=== PATIENT | male | born 1985 | race Caucasian/White ===

== ENCOUNTER 2016-12-14 12:45 | Emergency (ER) | payer SELFPAY ==
[~2016-12-14] VITALS: Ht 175.3 cm; Wt 68.0 kg
--- OUTSIDE RECORDS SUMMARY | 2016-12-14 12:51 | XMS REPORT | Continuity of Care Document ---
Author Author [facility] Address Unknown Phone Unavailable Allergies Medications Problems Procedures Code [place] [id number] Claudine Mcfadden Results Encounters ACCT No. Visit Date/Time Discharge Status Pt. Type Provider Facility Loc./Unit Complaint [id number] 10/18/2015 14:07:00 ACT Unknown
[2016-12-14 13:30] LABS: BASOPHILS % (AUTO) 0 % (0-10); EOSINOPHILS % (AUTO) 1 % (0-10); LYMPHOCYTES # (AUTO) 1.3 X 10^3 (1.0-4.0); LYMPHOCYTES % (AUTO) 24 % (12-44); MEAN CORPUSCULAR HEMOGLOBIN 33 PG (25-34); MEAN CORPUSCULAR HGB CONC 36 G/DL (32-36); MEAN CORPUSCULAR VOLUME 94 FL (80-99); MEAN PLATELET VOLUME 9.6 FL (7.4-10.4); MONOCYTES # (AUTO) 0.4 X 10^3 (0.0-1.0); MONOCYTES % (AUTO) 7 % (0-12); NEUTROPHILS # (AUTO) 3.7 X 10^3 (1.8-7.8); NEUTROPHILS % (AUTO) 68 % (42-75); PLATELET COUNT 253 10^3/uL (130-400); RED BLOOD COUNT 4.55 10^6/uL (4.35-5.85); RED CELL DISTRIBUTION WIDTH 11.9 % (10.0-14.5); WHITE BLOOD COUNT 5.4 10^3/uL (4.3-11.0)
[2016-12-14] MEDS ORDERED: ORPHENADRINE 60 MG/2 ML (NORFLEX) AMP IV ONE (13:30)
[2016-12-14] MEDS ORDERED: KETOROLAC 30 MG/ML VIAL IVP ONE (13:30)
[2016-12-14] MEDS ORDERED: ONDANSETRON 4 MG/2 ML (SDV) Z0FRAN IVP ONE (13:30)
--- NOTE | 2016-12-14 13:58 | Diagnostic Imaging Report ---
INDICATION: Right flank and groin pain. PA chest, supine and upright abdominal images were obtained. Lungs are clear. There is no intraperitoneal free air. Bowel gas pattern is normal. There are no pathologic masses or calcifications. IMPRESSION: Negative abdomen series. Dictated by: Dictated on workstation # [id number]
--- NOTE | 2016-12-14 14:01 | Diagnostic Imaging Report ---
PROCEDURE: CT urinary tract, rule out kidney stone. TECHNIQUE: Multiple contiguous axial images were obtained through the abdomen and pelvis without the use of intravenous contrast. INDICATION: Right flank pain. Nausea and vomiting. FINDINGS: The lung bases appear clear. The liver, the gallbladder, the spleen, and the adrenal glands appear unremarkable for an unenhanced exam. There is a ureteric stone on the right side measuring 4 mm at L5 level with upstream mild hydroureteronephrosis. No ureteric stone is seen on the left side. There are 2 mm nonobstructive stones in the lower pole of the left kidney with no hydronephrosis. The prostate is not enlarged at 4.2 cm in transverse dimension. The urinary bladder appears unremarkable. The colon demonstrates moderate amounts of fecal material with no abnormal dilatation or evidence of obstruction. The abdominal aorta is normal in caliber. No para-aortic significantly enlarged lymph node. The osseous structures appear grossly unremarkable. IMPRESSION: 1. Proximal right ureteric 4 mm stone with associated upstream mild hydroureteronephrosis. 2. Nonobstructive 2 mm left kidney stones. Dictated by: Dictated on workstation # [id number]
[2016-12-14 14:08] LABS: ALANINE AMINOTRANSFERASE 22 U/L (0-55); ALBUMIN 4.4 G/DL (3.2-4.5); AMYLASE 45 U/L (25-125); ANION GAP 12 MMOL/L (5-14); ASPARTATE AMINO TRANSFERASE 22 U/L (5-34); BILIRUBIN,TOTAL 0.8 MG/DL (0.1-1.0); BLOOD UREA NITROGEN 14 MG/DL (7-18); BUN/CREATININE RATIO 13; CALCIUM 9.3 MG/DL (8.5-10.1); CARBON DIOXIDE 23 MMOL/L (21-32); CHLORIDE 105 MMOL/L (98-107); CREATININE SERUM 1.07 MG/DL (0.60-1.30); GFR ESTIMATED > 60; GLUCOSE 132 MG/DL (70-105); LIPASE 32 U/L (8-78); POTASSIUM 4.1 MMOL/L (3.6-5.0); SODIUM 140 MMOL/L (135-145); TOTAL PROTEIN 6.9 G/DL (6.4-8.2)
[2016-12-14 14:24] LABS: KETONES,URINE 2+ (NEGATIVE); LEUKOCYTE ESTERASE ,URINE 2+ (NEGATIVE); NITRITE,URINE POSITIVE (NEGATIVE); PH,URINE 5 (5-9); PROTEIN,URINE 3+ (NEGATIVE); UROBILINOGEN,URINE 1 MG/DL (NORMAL)
[2016-12-14] MEDS ORDERED: ONDA4TAB8 PO (14:29)
[2016-12-14] MEDS ORDERED: HYDR-87 PO (14:29)
[2016-12-14] MEDS ORDERED: TAMS0.4C98 PO (14:29)
[2016-12-14] MEDS ORDERED: CIPR-225 PO (14:29)
[2016-12-14] MEDS ORDERED: ALFUZOSIN HCL 10 MG TAB (UROXATRAL) PO SCH (14:30)
--- NOTE | 2016-12-14 14:30 | ED GU-Male ---
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, BUT CAME HERE INSTEAD DUE TO SEVERE PAIN NO Allergies and Home Medications Allergies Coded Allergies: No Known Drug Allergies (Unverified , 12/14/16) Home Medications Ciprofloxacin HCl 500 Mg Tablet #20 500 MG PO BID Prescribed by: YELENA XAVIER on 12/14/16 1429 Hydrocodone/Ibuprofen 1 Each Tablet #20 1-2 EACH PO Q4H Prescribed by: YELENA XAVIER on 12/14/16 142 Ondansetron 4 Mg Tab.rapdis #10 4 MG PO Q4H Prescribed by: YELENA XAVIER on 12/14/16 142 Tamsulosin HCl 0.4 Mg Cap #10 0.4 MG PO DAILY Prescribed by: YELENA XAVIER on 12/14/16 142 Constitutional: no symptoms reported Respiratory: no symptoms reported Cardiovascular: no symptoms reported Gastrointestinal: see HPI abdominal pain nausea vomiting Genitourinary: see HPI flank pain other (RIGHT TESTICULAR PAIN ) Musculoskeletal: see HPI back pain Skin: no symptoms reported Psychiatric/Neurological: Anxiety Endocrine: No Symptoms Reported Hematologic/Lymphatic: No Symptoms Reported Past Xuoosqb-Qenmkd-Qgheao Hx Patient Social History Alcohol Use: Past History (HISTORY OF ABUSE, NONE RECENTLY) Recreational Drug Use: Yes (METH, THC. DENIES IV USE) Smoking Status: Current Everyday Smoker (1 09/28 PPD) Recent Foreign Travel: No Contact w/Someone Who Travel: No Recent Infectious Disease Expo: No Recent Hopitalizations: No Surgeries HX Surgeries: Yes Surgeries: Appendectomy Respiratory Hx Respiratory Disorders: No Cardiovascular Hx Cardiac Disorders: No Neurological Hx Neurological Disorders: No Reproductive System Hx Reproductive Disorders: No Genitourinary Hx Genitourinary Disorders: No Gastrointestinal Hx Gastrointestinal Disorders: No Musculoskeletal Hx Musculoskeletal Disorders: No Endocrine Hx Endocrine Disorders: No HEENT HX ENT Disorders: No Cancer Hx Cancer: No Psychosocial Hx Psychiatric Problems: No Integumentary HX Skin/Integumentary Disorder: No Blood Transfusions Hx Blood Disorders: No Physical Exam Vital Signs Vital Sign - Last 12Hours 12/14/16 12:58 Temp 98.6 Pulse 62 Resp 18 B/P 104/61 Pulse Ox 96 O2 Delivery Room Air Capillary Refill : Less Than 3 Seconds General Appearance: WD/WN other (EXTREMELY DRAMATIC, WAILING/MOANING LOUDLY. HOLDING LEFT FLANK. THRASHING ALL OVER. 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 no motor/sensory deficits alert oriented x 3 Skin: normal color warm/dry Focused Exam Lactic Acid Level Laboratory Tests Test 12/14/16 13:20 Alanine Aminotransferase (ALT/SGPT) 22U/L (0-55) Albumin 4.4G/DL (3.2-4.5) Alkaline Phosphatase 45U/L (40-136) Amylase Level 45U/L (25-125) Anion Gap 12MMOL/L (5-14) Aspartate Amino Transf (AST/SGOT) 22U/L (5-34) BUN/Creatinine Ratio 13 Blood Urea Nitrogen 14MG/DL (7-18) Calcium Level 9.3MG/DL (8.5-10.1) Carbon Dioxide Level 23MMOL/L (21-32) Chloride Level 105MMOL/L (98-107) Creatinine 1.07MG/DL (0.60-1.30) Estimat Glomerular Filtration Rate > 60 Glucose Level 132MG/DL (70-105) H Lipase 32U/L (8-78) Potassium Level 4.1MMOL/L (3.6-5.0) Sodium Level 140MMOL/L (135-145) Total Bilirubin 0.8MG/DL (0.1-1.0) Total Protein 6.9G/DL (6.4-8.2) Progress/Results/Core Measures Results/Orders Lab Results Laboratory Tests Test 12/14/16 13:20 12/14/16 14:19 Range/Units Alanine Aminotransferase (ALT/SGPT) 22 0-55 U/L Albumin 4.4 3.2-4.5 G/DL Alkaline Phosphatase 45 40-136 U/L Amylase Level 45 25-125 U/L Anion Gap 12 5-14 MMOL/L Aspartate Amino Transf (AST/SGOT) 22 5-34 U/L BUN/Creatinine Ratio 13 Basophils # (Auto) 0.0 0.0-0.1 10^3/uL Basophils (%) (Auto) 0 0-10 % Blood Urea Nitrogen 14 7-18 MG/DL Calcium Level 9.3 8.5-10.1 MG/DL Carbon Dioxide Level 23 21-32 MMOL/L Chloride Level 105 98-107 MMOL/L Creatinine 1.07 0.60-1.30 MG/DL Eosinophils # (Auto) 0.0 0.0-0.3 10^3/uL Eosinophils (%) (Auto) 1 0-10 % Estimat Glomerular Filtration Rate > 60 Glucose Level 132 H 70-105 MG/DL Hematocrit 43 40-54 % Hemoglobin 15.2 13.3-17.7 G/DL Lipase 32 8-78 U/L Lymphocytes # (Auto) 1.3 1.0-4.0 X 10^3 Lymphocytes (%) (Auto) 24 12-44 % Mean Corpuscular Hemoglobin 33 25-34 PG Mean Corpuscular Hemoglobin Concent 36 32-36 G/DL Mean Corpuscular Volume 94 80-99 FL Mean Platelet Volume 9.6 7.4-10.4 FL Monocytes # (Auto) 0.4 0.0-1.0 X 10^3 Monocytes (%) (Auto) 7 0-12 % Neutrophils # (Auto) 3.7 1.8-7.8 X 10^3 Neutrophils (%) (Auto) 68 42-75 % Platelet Count 253 130-400 10^3/uL Potassium Level 4.1 3.6-5.0 MMOL/L Red Blood Count 4.55 4.35-5.85 10^6/uL Red Cell Distribution Width 11.9 10.0-14.5 % Sodium Level 140 135-145 MMOL/L Total Bilirubin 0.8 0.1-1.0 MG/DL Total Protein 6.9 6.4-8.2 G/DL White Blood Count 5.4 4.3-11.0 10^3/uL Ur Tricyclic Antidepressants Screen NEGATIVE NEGATIVE Urine Amphetamines Screen NEGATIVE NEGATIVE Urine Bacteria NEGATIVE /HPF Urine Barbiturates Screen NEGATIVE NEGATIVE Urine Benzodiazepines Screen NEGATIVE NEGATIVE Urine Bilirubin 1+ H NEGATIVE Urine Calcium Oxalate Crystals FEW H /LPF Urine Cannabinoids Screen NEGATIVE NEGATIVE Urine Casts NONE /LPF Urine Clarity CLEAR Urine Cocaine Screen NEGATIVE NEGATIVE Urine Color YELLOW Urine Crystals PRESENT H /LPF Urine Culture Indicated NO Urine Glucose (UA) NEGATIVE NEGATIVE Urine Ketones 2+ H NEGATIVE Urine Leukocyte Esterase 2+ H NEGATIVE Urine Methadone Screen NEGATIVE NEGATIVE Urine Methamphetamines Screen NEGATIVE NEGATIVE Urine Mucus NEGATIVE /LPF Urine Nitrite POSITIVE H NEGATIVE Urine Opiates Screen NEGATIVE NEGATIVE Urine Oxycodone Screen NEGATIVE NEGATIVE Urine Phencyclidine Screen NEGATIVE NEGATIVE Urine Propoxyphene Screen NEGATIVE NEGATIVE Urine Protein 3+ H NEGATIVE Urine RBC TNTC H /HPF Urine RBC (Auto) 5+ H NEGATIVE Urine Specific [place] 1.025 H 1.016-1.022 Urine Squamous Epithelial Cells NONE /HPF Urine Urobilinogen 1 NORMAL MG/DL Urine WBC 2-5 /HPF Urine pH 5 5-9 My Orders Orders-YELENA XAVIER DO Ct Abd/Pelvis Wo(Kidney Stone) (12/14/16 13:16) Amylase (12/14/16 13:16) Cbc With Automated Diff (12/14/16 13:16) Comprehensive Metabolic Panel (12/14/16 13:16) Lipase (12/14/16 13:16) Ua Culture If Indicated (12/14/16 13:16) Acute Abd Series (12/14/16 13:16) Drug Screen Stat (Urine) (12/14/16 13:16) Ketorolac Injection (Toradol Injection) (12/14/16 13:30) Ondansetron Injection (Zofran Injectio (12/14/16 13:30) Orphenadrine Injection (Norflex Injectio (12/14/16 13:30) Alfuzosin Tablet (Uroxatral Tablet) (12/14/16 14:30) Morphine Injection (Morphine Injection (12/14/16 14:32) Medications Given in ED Vital Signs/I&O Vital Sign - Last 12Hours 12/14/16 12/14/16 12:58 15:08 Temp 98.6 Pulse 62 85 Resp 18 16 B/P 104/61 Pulse Ox 96 98 O2 Delivery Room Air Blood Pressure Mean: 75 Progress Note : Progress Note PAIN MUCH IMPROVED AT DISMISSAL. PT RESTING QUIETLY Diagnostic Imaging Comments ACUTE ABDOMEN XRAYS--NO ACUTE PROCESS CT ABDOMEN / PELVIS--4 MM STONE RIGHT PROXIMAL URETER WITH MILD RIGHT HYDRONEPHROSIS, LEFT INTRARENAL STONES 2 MM. PER RADIOLOGIST REPORTS @ 1420 Reviewed: Reviewed by Me Departure Impression Impression: Primary Impression: Right ureteral calculus Disposition: HOME, SELF-CARE Condition: Improved Departure-Patient Inst. Referrals: NO,LOCAL PHYSICIAN (PCP) Primary Care Physician VENKATA WILSON MD Patient Instructions: Kidney Stones (DC) Add. Discharge Instructions: STRAIN ALL URINE--RETURN ANY STONES TO DR'S OFFICE LOTS OF FLUIDS FOLLOW UP WITH DR. WILSON ( UROLOGIST ) OR DR OF CHOICE THIS WEEK FOR FURTHER CARE All discharge instructions reviewed with patient and/or family. Voiced understanding. Scripts Ondansetron (Zofran Odt)4 Mg Tab.rapdis4 Mg PO Q4H Nausea/Vomiting #10 TAB Prov:YELENA XAVIER DO 12/14/16 Hydrocodone/Ibuprofen (Hydrocodone-Ibuprofen 7.5-200)1 Each Tablet1-2 Each PO Q4H Pain #20 TAB Prov:YELENA XAVIER DO 12/14/16 Ciprofloxacin HCl (Cipro)500 Mg [id number] Mg PO BID #20 TAB Prov:YELENA XAVIER DO 12/14/16 Tamsulosin HCl (Flomax)0.4 Mg Cap0.4 Mg PO DAILY #10 CAP Prov:YELENA XAVIER DO 12/14/16 Work/School Note: Local [employer] Listing YELENA XAVIER DO Dec 14, 2016 2:29 pm
[2016-12-14] MEDS ORDERED: morphine INJ 10 MG/ML 1ML (SYR OR VIAL) IVP STA (14:32)
[2016-12-14 14:37] LABS: BILIRUBIN,URINE 1+ (NEGATIVE); CALCIUM OXALATE CRYSTALS,UR FEW /LPF
[2016-12-14 15:08] VITALS: BP 97/59
== END 2016-12-14 15:08 | disposition home or self-care (01) ==
LOC: EDUNIT# 12:45 → ER 12:47
DX: N20.2 Calculus of kidney with calculus of ureter (principal); F17.210 Nicotine dependence, cigarettes, uncomplicated
CPT/HCPCS: 36415; 74022; 74176; 80053; 80306; 81000; 82150; 83690; 85025; 96374; 96375

== ENCOUNTER 2018-08-16 09:58 | Emergency (ER) | payer SELFPAY ==
[~2018-08-16] VITALS: Ht 175.3 cm; Wt 71.7 kg
[~2018-08-16 09:58] MED LIST: CIPR-225 PO; HYDR-87 PO; ONDA4TAB8 PO; TAMS0.4C98 PO
[2018-08-16 10:20] LABS: BASOPHILS % (AUTO) 0 % (0-10); EOSINOPHILS # (AUTO) 0.2 10^3/uL (0.0-0.3); EOSINOPHILS % (AUTO) 3 % (0-10); HEMATOCRIT 41 % (40-54); HEMOGLOBIN 14.7 G/DL (13.3-17.7); LYMPHOCYTES # (AUTO) 2.5 X 10^3 (1.0-4.0); LYMPHOCYTES % (AUTO) 46 % (12-44); MEAN CORPUSCULAR HEMOGLOBIN 33 PG (25-34); MEAN CORPUSCULAR HGB CONC 36 G/DL (32-36); MEAN CORPUSCULAR VOLUME 91 FL (80-99); MEAN PLATELET VOLUME 9.4 FL (7.4-10.4); MONOCYTES # (AUTO) 0.6 X 10^3 (0.0-1.0); MONOCYTES % (AUTO) 10 % (0-12); NEUTROPHILS # (AUTO) 2.2 X 10^3 (1.8-7.8); NEUTROPHILS % (AUTO) 40 % (42-75); PLATELET COUNT 215 10^3/uL (130-400); RED BLOOD COUNT 4.44 10^6/uL (4.35-5.85); RED CELL DISTRIBUTION WIDTH 12.6 % (10.0-14.5); WHITE BLOOD COUNT 5.4 10^3/uL (4.3-11.0)
[2018-08-16] MEDS: NS IV 1000 ML 1,000 ML IV ONE (10:23)
[2018-08-16] MEDS: ONDANSETRON 4 MG/2 ML (SDV) Z0FRAN IVP ONE (10:23)
[2018-08-16] MEDS: KETOROLAC 30 MG/ML VIAL IVP ONE (10:23)
[2018-08-16 10:40] LABS: ALANINE AMINOTRANSFERASE 23 U/L (0-55); ALBUMIN 4.3 GM/DL (3.2-4.5); ALKALINE PHOSPHATASE 46 U/L (40-136); BILIRUBIN,TOTAL 0.3 MG/DL (0.1-1.0); BUN/CREATININE RATIO 15; CALCIUM 9.2 MG/DL (8.5-10.1); CARBON DIOXIDE 24 MMOL/L (21-32); CHLORIDE 107 MMOL/L (98-107); CREATININE SERUM 0.86 MG/DL (0.60-1.30); GFR ESTIMATED > 60; GLUCOSE 100 MG/DL (70-105); POTASSIUM 4.2 MMOL/L (3.6-5.0); SODIUM 138 MMOL/L (135-145); TOTAL PROTEIN 7.1 GM/DL (6.4-8.2)
[2018-08-16 10:52] LABS: BILIRUBIN,URINE NEGATIVE (NEGATIVE); CLARITY,URINE CLEAR; COLOR,URINE YELLOW; GLUCOSE, URINE (UA) NEGATIVE (NEGATIVE); KETONES,URINE NEGATIVE (NEGATIVE); LEUKOCYTE ESTERASE ,URINE 1+ (NEGATIVE); NITRITE,URINE NEGATIVE (NEGATIVE); PH,URINE 5 (5-9); PROTEIN,URINE 2+ (NEGATIVE); UROBILINOGEN,URINE NORMAL (NORMAL)
[2018-08-16 11:02] LABS: BACTERIA,URINE MODERATE /HPF; RBC,URINE >100 /HPF
[2018-08-16] MEDS: fentaNYL INJECTION 100 MCG/2 ML AMP IVP ONE (11:26)
--- NOTE | 2018-08-16 11:31 | ED Abdominal Pain ---
General Chief Complaint: Abdominal/GI Problems Stated Complaint: SHARP LOWER BACK PAIN Nursing Triage Note: AMB TO ROOM WITH FEMALE PATIENT REPORTS THAT HE IS HAVING L SIDE PAIN FOR 2 DAYS. HAS PMH OF KIDNEY STONE. Sepsis Screen: No Definite Risk Source of Information: Patient Exam Limitations: No Limitations History of Present Illness Date Seen by Provider: Aug 16, 2018 Time Seen by Provider: 10:02 Initial Comments This 33-year-old man presents to emergency room with left lower back pain and left lower quadrant pain that he rates as 10/10. Pain started a couple days ago but intensified this morning and woke him from sleep. He has taken Tylenol without improvement. He denies any nausea, vomiting, diarrhea, or constipation. He notes no fever or urinary changes. He does have history of ureteral stone and states this feels similar. Allergies and Home Medications Allergies Coded Allergies: Sulfa (Sulfonamide Antibiotics) (Verified Allergy, Unknown, 08/16/18) Home Medications Ciprofloxacin HCl 500 Mg Tablet, 500 MG PO BID Prescribed by: LINWOOD HENSON on 08/16/18 1205 Hydrocodone/Ibuprofen 1 Each Tablet, 1-2 EACH PO Q4H Prescribed by: YELENA XAVIER on 12/14/16 1429 Ondansetron 4 Mg Tab.rapdis, 4 MG PO Q4H Prescribed by: YELENA XAVIER on 12/14/16 1429 Oxycodone HCl/Acetaminophen 1 Each Tablet, 1 EACH PO Q4H PRN for PAIN-MODERATE Prescribed by: LINWOOD HENSON on 08/16/18 1205 Tamsulosin HCl 0.4 Mg Cap, 0.4 MG PO DAILY Prescribed by: YELENA XAVIER on 12/14/16 1429 Patient Home Medication List Home Medication List Reviewed: Yes Review of Systems Review of Systems Constitutional: no symptoms reported EENTM: No Symptoms Reported Respiratory: No Symptoms Reported Cardiovascular: No Symptoms Reported Gastrointestinal: See HPI Genitourinary: See HPI Musculoskeletal: see HPI Skin: no symptoms reported Psychiatric/Neurological: No Symptoms Reported Endocrine: No Symptoms Reported Hematologic/Lymphatic: No Symptoms Reported Past Wyhoclx-Jtnuep-Tqxyik Hx Past Med/Social Hx: Reviewed and Corrections made Patient Social History Alcohol Use: Denies Use Recreational Drug Use: No Smoking Status: Current Everyday Smoker Recent Foreign Travel: No Contact w/Someone Who Travel: No Recent Infectious Disease Expo: No Recent Hopitalizations: No Past Medical History Surgeries: Yes Appendectomy Respiratory: Yes Asthma Cardiac: No Neurological: No Reproductive Disorders: No Genitourinary: Yes Kidney Stones Gastrointestinal: No Musculoskeletal: Yes Osteoporosis Endocrine: No HEENT: No Cancer: No Psychosocial: No Integumentary: No Blood Disorders: No Physical Exam Vital Signs Vital Signs - First Documented 08/16/18 08/16/18 10:00 12:11 Temp 97.4 Pulse 65 Resp 18 B/P (MAP) 149/79 (102) Pulse Ox 98 O2 Delivery Room Air Capillary Refill : Less Than 3 Seconds Height/Weight/BMI Height: 5'9.00" Weight: 158lbs. oz. 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, no motor/sensory deficits, alert, normal mood/affect, oriented x 3 Skin: normal color, warm/dry Progress/Results/Core Measures Results/Orders Lab Results Laboratory Tests Test 08/16/18 10:11 08/16/18 10:46 Range/Units White Blood Count 5.4 4.3-11.0 10^3/uL Red Blood Count 4.44 4.35-5.85 10^6/uL Hemoglobin 14.7 13.3-17.7 G/DL Hematocrit 41 40-54 % Mean Corpuscular Volume 91 80-99 FL Mean Corpuscular Hemoglobin 33 25-34 PG Mean Corpuscular Hemoglobin Concent 36 32-36 G/DL Red Cell Distribution Width 12.6 10.0-14.5 % Platelet Count 215 130-400 10^3/uL Mean Platelet Volume 9.4 7.4-10.4 FL Neutrophils (%) (Auto) 40 L 42-75 % Lymphocytes (%) (Auto) 46 H 12-44 % Monocytes (%) (Auto) 10 0-12 % Eosinophils (%) (Auto) 3 0-10 % Basophils (%) (Auto) 0 0-10 % Neutrophils # (Auto) 2.2 1.8-7.8 X 10^3 Lymphocytes # (Auto) 2.5 1.0-4.0 X 10^3 Monocytes # (Auto) 0.6 0.0-1.0 X 10^3 Eosinophils # (Auto) 0.2 0.0-0.3 10^3/uL Basophils # (Auto) 0.0 0.0-0.1 10^3/uL Sodium Level 138 135-145 MMOL/L Potassium Level 4.2 3.6-5.0 MMOL/L Chloride Level 107 98-107 MMOL/L Carbon Dioxide Level 24 21-32 MMOL/L Anion Gap 7 5-14 MMOL/L Blood Urea Nitrogen 13 7-18 MG/DL Creatinine 0.86 0.60-1.30 MG/DL Estimat Glomerular Filtration Rate > 60 BUN/Creatinine Ratio 15 Glucose Level 100 70-105 MG/DL Calcium Level 9.2 8.5-10.1 MG/DL Corrected Calcium 9.0 8.5-10.1 MG/DL Total Bilirubin 0.3 0.1-1.0 MG/DL Aspartate Amino Transf (AST/SGOT) 20 5-34 U/L Alanine Aminotransferase (ALT/SGPT) 23 0-55 U/L Alkaline Phosphatase 46 40-136 U/L Total Protein 7.1 6.4-8.2 GM/DL Albumin 4.3 3.2-4.5 GM/DL Urine Color YELLOW Urine Clarity CLEAR Urine pH 5 5-9 Urine Specific [place] 1.025 H 1.016-1.022 Urine Protein 2+ H NEGATIVE Urine Glucose (UA) NEGATIVE NEGATIVE Urine Ketones NEGATIVE NEGATIVE Urine Nitrite NEGATIVE NEGATIVE Urine Bilirubin NEGATIVE NEGATIVE Urine Urobilinogen NORMAL NORMAL MG/DL Urine Leukocyte Esterase 1+ H NEGATIVE Urine RBC (Auto) 5+ H NEGATIVE Urine RBC >100 H /HPF Urine WBC 2-5 /HPF Urine Crystals NONE /LPF Urine Bacteria MODERATE H /HPF Urine Casts NONE /LPF Urine Mucus SMALL H /LPF Urine Culture Indicated YES My Orders Orders - LINWOOD BELLA MD Cbc With Automated Diff (08/16/18 10:06) Comprehensive Metabolic Panel (08/16/18 10:06) Ua Culture If Indicated (08/16/18 10:06) Saline Lock/Iv-Start (08/16/18 10:06) Ns Iv 1000 Ml (Sodium Chloride 0.9%) (08/16/18 10:06) Ondansetron Injection (Zofran Injectio (08/16/18 10:15) Ketorolac Injection (Toradol Injection) (08/16/18 10:15) Urine Culture (08/16/18 10:46) Ceftriaxone For Iv Use (Rocephin For I (08/16/18 11:15) Ct Abd/Pelvis Wo(Kidney Stone) (08/16/18 11:10) Fentanyl Injection (Sublimaze Injection (08/16/18 11:15) Abdomen/Kub 1view (08/16/18 11:43) Glycopyrrolate Injection (Robinul Inject (08/16/18 11:45) Oxycodone/Apap 5/325mg Tablet (Percocet (08/16/18 12:00) Medications Given in ED Current Medications Medications Dose Ordered Sig/Avelina Route Start Time Stop Time Status Last Admin Dose Admin Ceftriaxone Sodium 1000 mg/ Sodium Chloride 50 ml @ 100 mls/hr ONCE ONCE IV 08/16/18 11:15 08/16/18 11:44 DC 08/16/18 11:45 100 MLS/HR Fentanyl Citrate 75 mcg ONCE ONCE IVP 08/16/18 11:15 08/16/18 11:16 DC 08/16/18 11:26 75 MCG Glycopyrrolate 0.2 mg ONCE ONCE IV 08/16/18 11:45 08/16/18 11:46 DC 08/16/18 12:00 0.2 MG Ketorolac Tromethamine 15 mg ONCE ONCE IVP 08/16/18 10:15 08/16/18 10:16 DC 08/16/18 10:23 15 MG Ondansetron HCl 4 mg ONCE ONCE IVP 08/16/18 10:15 08/16/18 10:16 DC 08/16/18 10:23 4 MG Oxycodone/ Acetaminophen 1 tab ONCE ONCE PO 08/16/18 12:00 08/16/18 12:01 DC 08/16/18 12:01 1 TAB Sodium Chloride 1,000 ml @ 0 mls/hr Q0M ONCE IV 08/16/18 10:06 08/16/18 10:07 DC 08/16/18 10:23 1,000 MLS/HR Vital Signs/I&O 08/16/18 08/16/18 10:00 12:11 Temp 97.4 Pulse 65 57 Resp 18 18 B/P (MAP) 149/79 (102) 124/76 (92) Pulse Ox 98 98 O2 Delivery Room Air Blood Pressure Mean: 102 Progress Progress Note #1: Time: 11:30 Progress Note Patient received Zofran and Toradol for symptom management. He liter of IV normal saline was infused. UA demonstrated bacteria and hematuria. A dose of Rocephin has been given. Pain rebounded after Toradol and fentanyl was given. CT of the abdomen and pelvis for stone search is pending. Patient developed some pain in the left testicle that he did not have on presentation. Testicular exam showed minimal tenderness. There is no swelling, malposition or erythema. Progress Note #2: Progress Note A ureteral stone was found in the right mid ureter. Patient was further treated with fentanyl and Robinul. Patient was given a Percocet before dismissal. Prescriptions were provided as well as a strainer. Patient was dismissed in improved condition. Diagnostic Imaging Diagonstic Imaging: CT Plain Films/CT/US/NM/MRI: abdomen, pelvis Comments CT abdomen and pelvis viewed by me and report reviewed. See report below: NAME: JET MATA [facility] REC#: [id number] PT STATUS: REG ER : 1985 PHYSICIAN: LINWOOD BELLA MD ADMIT DATE: 08/16/18/ER Signed Date of Exam: 08/16/18 CT ABD/PELVIS WO(KIDNEY STONE) PROCEDURE: CT urinary tract, rule out kidney stone. TECHNIQUE: Multiple contiguous axial images were obtained through the abdomen and pelvis without the use of intravenous contrast. INDICATION: Low back pain. Hematuria. COMPARISON: CT abdomen and pelvis without contrast dated 12/14/2016. FINDINGS: There is a 0.3 cm renal stone in the proximal left ureter near the left ureteropelvic junction. This results in mild left pyelocaliectasis. There are couple of additional 0.2 cm nonobstructing calyceal tip renal stones in the left kidney. No right renal or ureteral stones. Lung bases are clear. The liver, gallbladder, pancreas, spleen and adrenal glands are negative. No free intraperitoneal air or fluid. No lymphadenopathy. No evidence of bowel obstruction. No acute osseous findings. IMPRESSION: A 0.3 cm renal stone in the proximal left ureter resulting in mild left hydronephrosis. There are a couple of additional small non-obstructing calyceal tip renal stones in the left kidney. Dictated by: Dictated on workstation # [id number] Dict: 08/16/18 1144 Trans: 08/16/18 1201 Interpreted by: ISABELLA LICEA MD Electronically signed by: ISABELLA LICEA MD 08/16/18 1201 Diagonstic Imaging: Xray Plain Films/CT/US/NM/MRI: abdomen Comments NAME: JET MATA [facility] REC#: [id number] PT STATUS: DEP ER : 1985 PHYSICIAN: LINWOOD BELLA MD ADMIT DATE: 08/16/18/ER Signed Date of Exam: 08/16/18 ABDOMEN/KUB 1VIEW INDICATION: Nephrolithiasis. FINDINGS: Bowel gas pattern is nonspecific. No definite abnormal calcifications are appreciated. Osseous structures are unremarkable. IMPRESSION: Nonspecific bowel gas pattern. Dictated by: Dictated on workstation # [id number] Dict: 08/16/18 1251 Trans: 08/16/18 1300 Interpreted by: SABA TALBERT MD Electronically signed by: SABA TALBERT MD 08/16/18 1300 Departure Impression Primary Impression: Left ureteral stone Additional Impressions: Urinary tract infection Qualified Codes: N39.0 - Urinary tract infection, site not specified; R31.9 - Hematuria, unspecified Nephrolithiasis Disposition: 01 HOME, SELF-CARE Condition: Improved Departure-Patient Inst. Decision time for Depature: 12:03 Referrals: NO,LOCAL PHYSICIAN (PCP/Family) Primary Care Physician Patient Instructions: Kidney Stones in Adults Add. Discharge Instructions: Drink plenty of clear liquids. Complete your antibiotic as prescribed. Follow-up with a primary care provider as soon as possible. Please call today to make an appointment. Take your pain medications as prescribed. Strain your urine and bring any stones collected with you to your follow-up appointment. All discharge instructions reviewed with patient and/or family. Voiced understanding. Scripts Oxycodone HCl/Acetaminophen (Percocet 5-325 mg Tablet) 1 Each Tablet 1 EACH PO Q4H PRN for PAIN-MODERATE MDD 6, #20 TAB Prov: LINWOOD BELLA MD 08/16/18 Ciprofloxacin HCl (Cipro) 500 Mg Tablet 500 MG PO BID, #14 TAB Prov: LINWOOD BELLA MD 08/16/18 Copy Copies To 1: SULY SCHULTZ JOSHUA T MD Aug 16, 2018 11:31
[2018-08-16] MEDS: cefTRIAXone FOR IV USE 1,000 MG in NS (IVPB) 50 ML IV ONE (11:45)
--- NOTE | 2018-08-16 11:55 | Diagnostic Imaging Report ---
PROCEDURE: CT urinary tract, rule out kidney stone. TECHNIQUE: Multiple contiguous axial images were obtained through the abdomen and pelvis without the use of intravenous contrast. INDICATION: Low back pain. Hematuria. COMPARISON: CT abdomen and pelvis without contrast dated 12/14/2016. FINDINGS: There is a 0.3 cm renal stone in the proximal left ureter near the left ureteropelvic junction. This results in mild left pyelocaliectasis. There are couple of additional 0.2 cm nonobstructing calyceal tip renal stones in the left kidney. No right renal or ureteral stones. Lung bases are clear. The liver, gallbladder, pancreas, spleen and adrenal glands are negative. No free intraperitoneal air or fluid. No lymphadenopathy. No evidence of bowel obstruction. No acute osseous findings. IMPRESSION: A 0.3 cm renal stone in the proximal left ureter resulting in mild left hydronephrosis. There are a couple of additional small non-obstructing calyceal tip renal stones in the left kidney. Dictated by: Dictated on workstation # [id number]
[2018-08-16] MEDS: GLYCOPYRROLATE 0.2 MG/ML (ROBINUL) 2 ML VIAL IV ONE (12:00)
[2018-08-16] MEDS: oxyCODONE/APAP 5/325MG (PERCOCET 5) TABLET PO ONE (12:01)
[2018-08-16] MEDS ORDERED: OXYC1TAB87 PO (12:05)
[2018-08-16] MEDS ORDERED: CIPR-225 PO (12:05)
[2018-08-16 12:11] VITALS: BP 124/76
--- NOTE | 2018-08-16 13:00 | Diagnostic Imaging Report ---
INDICATION: Nephrolithiasis. FINDINGS: Bowel gas pattern is nonspecific. No definite abnormal calcifications are appreciated. Osseous structures are unremarkable. IMPRESSION: Nonspecific bowel gas pattern. Dictated by: Dictated on workstation # [id number]
== END 2018-08-16 12:11 | disposition home or self-care (01) ==
LOC: EDUNIT# 09:58 → ER 09:59
DX: N13.6 Pyonephrosis (principal); J45.909 Unspecified asthma, uncomplicated; M81.0 Age-related osteoporosis without current pathological fracture; F17.200 Nicotine dependence, unspecified, uncomplicated; Z88.2 Allergy status to sulfonamides; Z87.442 Personal history of urinary calculi; Z90.49 Acquired absence of other specified parts of digestive tract
CPT/HCPCS: 36415; 74018; 74176; 80053; 81000; 85025; 87088

== ENCOUNTER 2019-06-23 21:36 | Emergency (ER) | payer BC, OTHER ==
[~2019-06-23] VITALS: Ht 175.2 cm; Wt 63.6 kg
[~2019-06-23 21:36] MED LIST changes: +OXYC1TAB87 PO
--- NOTE | 2019-06-23 22:09 | ED Integumentary General ---
General Chief Complaint: Bite-Animal/Human/Insect Stated Complaint: SPIDER BITE Source: patient Exam Limitations: no limitations History of Present Illness Date Seen by Provider: Jun 23, 2019 Time Seen by Provider: 22:04 Initial Comments To ER with reports of a spider bite to the dorsal aspect second metacarpal left hand. This occurred about 30 minutes ago. The spider fell off of him and he noticed some swelling to this area. The area is a little bit swollen about half- dollar sized, not itchy not painful. He brought the spider with him which is about nickel size, not brown recluse, but brownish in color, appears to maybe be a rivera spider variant or orb spider Timing/Duration: just prior to arrival Severity: mild Associated Symptoms: change in skin texture Allergies and Home Medications Allergies Coded Allergies: Sulfa (Sulfonamide Antibiotics) (Verified Allergy, Unknown, 08/16/18) Home Medications Ciprofloxacin HCl 500 Mg Tablet, 500 MG PO BID Prescribed by: LINWOOD HENSON on 08/16/18 1205 Hydrocodone/Ibuprofen 1 Each Tablet, 1-2 EACH PO Q4H Prescribed by: YELENA XAVIER on 12/14/16 1429 Ondansetron 4 Mg Tab.rapdis, 4 MG PO Q4H Prescribed by: YELENA XAVIER on 12/14/16 1429 Oxycodone HCl/Acetaminophen 1 Each Tablet, 1 EACH PO Q4H PRN for PAIN-MODERATE Prescribed by: LINWOOD HENSON on 08/16/18 1205 Tamsulosin HCl 0.4 Mg Cap, 0.4 MG PO DAILY Prescribed by: YELENA XAVIER on 12/14/16 1429 Patient Home Medication List Home Medication List Reviewed: Yes Review of Systems Review of Systems Constitutional: see HPI EENTM: see HPI Respiratory: no symptoms reported Cardiovascular: no symptoms reported Genitourinary: no symptoms reported Musculoskeletal: no symptoms reported Skin: see HPI Psychiatric/Neurological: No Symptoms Reported Past Nwqjrgp-Ncstbj-Nynlie Hx Patient Social History Recent Foreign Travel: No Contact w/Someone Who Travel: No Recent Hopitalizations: No Past Medical History Surgeries: Yes Appendectomy Respiratory: Yes Asthma Cardiac: No Neurological: No Reproductive Disorders: No Genitourinary: Yes Kidney Stones Gastrointestinal: No Musculoskeletal: Yes Osteoporosis Endocrine: No HEENT: No Cancer: No Psychosocial: No Integumentary: No Blood Disorders: No Physical Exam Vital Signs Capillary Refill : General Appearance: WD/WN, no apparent distress HEENT: PERRL/EOMI, normal ENT inspection Neck: non-tender, full range of motion Respiratory: no respiratory distress Neurologic/Psychiatric: alert, normal mood/affect, oriented x 3 Skin: normal color, warm/dry Skin Problem Location: upper extremities Skin Problem Character: other (half-dollar sized area of swelling without erythema over the dorsal aspect of the distal second metacarpal left hand) Progress/Results/Core Measures Results/Orders My Orders Orders - ANDREA AREVALO APRN Cephalexin Capsule (Keflex Capsule) (06/23/19 22:15) Prednisone Tablet (Deltasone Tablet) (06/23/19 22:15) Departure Impression Primary Impression: Spider bite wound Disposition: HOME, SELF-CARE Condition: Stable Departure-Patient Inst. Decision time for Depature: 22:08 Referrals: NO,LOCAL PHYSICIAN (PCP/Family) Primary Care Physician Patient Instructions: Insect Bites and Stings (DC) Add. Discharge Instructions: 1. Cool compresses to this area 2. Benadryl as needed for any itching, antibiotics as directed return to ER for any worsening follow-up with your doctor next week. Scripts Cephalexin (Keflex) 500 Mg Capsule 500 MG PO TID, #9 CAP Prov: ANDREA AREVALO APRN 06/23/19 ANDREA AREVALO APRN Jun 23, 2019 22:09
[2019-06-23] MEDS ORDERED: CEPH-507 PO ×2 (22:10→22:19)
[2019-06-23 22:15] VITALS: BP 128/82
[2019-06-23] MEDS ORDERED: CEPHALEXIN 250 MG (KEFLEX) CAP PO ONE (22:15)
[2019-06-23] MEDS ORDERED: predniSONE 20 MG TAB PO ONE (22:15)
== END 2019-06-23 22:15 | disposition home or self-care (01) ==
LOC: EDUNIT# 21:36 → ER 21:37
DX: T63.301A Toxic effect of unspecified spider venom, accidental (unintentional), initial encounter (principal); J45.909 Unspecified asthma, uncomplicated; Z87.442 Personal history of urinary calculi; Z88.2 Allergy status to sulfonamides; Z90.49 Acquired absence of other specified parts of digestive tract
CPT/HCPCS: 99283

== ENCOUNTER 2019-09-02 11:02 | Emergency (ER) | payer MEDICAID ==
[~2019-09-02] VITALS: Ht 175 cm; Wt 70.5 kg
[~2019-09-02 11:02] MED LIST changes: +CEPH-507 PO; -TAMS0.4C98 PO; +TMSL.4C PO
--- NOTE | 2019-09-02 11:28 | ED EENT ---
History of Present Illness General Chief Complaint: Dental Problems/Pain Stated Complaint: DENTAL PAIN / FACIAL SWELLING Nursing Triage Note: COMPLAINS OF A BAD TOOTH ON THE LEFT UPPER SIDE. SWELLING STARTING LAST NIGHT. STATES HE CANT AFFORD A DENTIST AND WOULD LIKE SOME CHEAP ANTIBIOTICS. Source: patient, family Exam Limitations: no limitations History of Present Illness Date Seen by Provider: Sep 02, 2019 Time Seen by Provider: 11:23 Initial Comments This 34-year-old white male presents with dental caries with associated swelling to the left maxillary area. The swelling began last night. The patient does not have a dentist currently and is planning to use [facility]. Patient denies associated headache, stiff neck, or photophobia. He denies airway or oral impingement. He has had no chills or fever. Allergies and Home Medications Allergies Coded Allergies: Sulfa (Sulfonamide Antibiotics) (Verified Allergy, Unknown, 08/16/18) Home Medications No Active Prescriptions or Reported Meds Patient Home Medication List Home Medication List Reviewed: Yes Review of Systems Review of Systems Constitutional: No chills, No fever Eyes: No Symptoms Reported Ears: No Symptoms Reported Nose: no symptoms reported Mouth: other Throat: denies pain (dental caries), denies hoarse, denies muffled Respiratory: No cough Cardiovascular: No chest pain Gastrointestinal: No abdominal pain, No nausea, No vomiting Musculoskeletal: no symptoms reported Skin: no symptoms reported Neurological: No Symptoms Reported Hematologic/Lymphatic: No Symptoms Reported Immunological/Allergic: no symptoms reported Past Tqpyhtr-Xsfoyi-Pqxqqs Hx Past Med/Social Hx: Reviewed Nursing Past Med/Soc Hx Patient Social History Alcohol Use: Denies Use Recreational Drug Use: No Smoking Status: Current Everyday Smoker Recent Foreign Travel: No Contact w/Someone Who Travel: No Recent Infectious Disease Expo: No Recent Hopitalizations: No Past Medical History Surgeries: Yes Adenoidectomy, Appendectomy, Tonsillectomy Respiratory: Yes Asthma Cardiac: No Neurological: No Reproductive Disorders: No Genitourinary: Yes Kidney Stones Gastrointestinal: No Musculoskeletal: Yes Osteoporosis Endocrine: No HEENT: No Cancer: No Psychosocial: No Integumentary: No Blood Disorders: No Physical Exam Vital Signs Vital Signs - First Documented 09/02/19 11:12 Temp 36.7 Pulse 95 Resp 16 B/P (MAP) 119/78 (92) Pulse Ox 99 O2 Delivery Room Air Height, Weight, BMI Height: 5'9.00" Weight: 158lbs. oz. [id number]; 23.00 BMI Method:Stated General Appearance: WD/WN, no apparent distress Eyes: bilateral eye normal inspection Ears: bilateral ear auricle normal Nose: normal inspection; No active bleeding Mouth/Throat: other (a few still caries to the left maxillary area over the second molar.) Neck: non-tender, supple Cardiovascular: regular rate, rhythm, no murmur Respiratory: chest non-tender, lungs clear, normal breath sounds Gastrointestinal: normal bowel sounds, non tender, soft Neurologic/Psychiatric: no motor/sensory deficits, alert Skin: normal color, warm/dry Progress/Results/Core Measures Results/Orders Vital Signs/I&O 09/02/19 11:12 Temp 36.7 Pulse 95 Resp 16 B/P (MAP) 119/78 (92) Pulse Ox 99 O2 Delivery Room Air Blood Pressure Mean: 92 POS Progress Progress Note : Time: 11:26 Progress Note I discussed the findings with the patient and his family. I initiated Pen-Vee K for his dental caries. I gave him a prescription for tramadol for pain. I encouraged [facility] I asked him to return if any problems or questions. Departure Impression Primary Impression: Dental caries Disposition: HOME, SELF-CARE Condition: Unchanged Departure-Patient Inst. Decision time for Depature: 11:27 Referrals: [facility],LOCAL PHYSICIAN (PCP) Primary Care Physician Patient Instructions: Dental Pain (DC) Add. Discharge Instructions: Pen-Vee K and tramadol as prescribed. [facility]. Return if any problems or questions. All discharge instructions reviewed with patient and/or family. Voiced understanding. Scripts Penicillin V Potassium (Penicillin V Potassium) 500 Mg Tablet 500 MG PO QID for 10 Days, TAB Prov: TRISH STRATTON MD 09/02/19 Tramadol HCl (Tramadol HCl) 50 Mg Tablet 100 MG PO Q4M for Pain, #20 TAB Prov: TRISH STRATTON MD 09/02/19 TRISH STRATTON MD Sep 02, 2019 11:28 POS
[2019-09-02] MEDS ORDERED: PENI500T PO (11:31)
[2019-09-02] MEDS ORDERED: TRM50T PO (11:31)
[2019-09-02 11:35] VITALS: BP 119/78
== END 2019-09-02 11:35 | disposition home or self-care (01) ==
LOC: EDUNIT# 11:02 → ER 11:03
DX: K02.9 Dental caries, unspecified (principal); J45.909 Unspecified asthma, uncomplicated; F17.200 Nicotine dependence, unspecified, uncomplicated; Z88.2 Allergy status to sulfonamides; Z90.49 Acquired absence of other specified parts of digestive tract; Z90.89 Acquired absence of other organs; Z87.442 Personal history of urinary calculi
CPT/HCPCS: 99282